=== PATIENT | male | born 1945 | race Caucasian/White ===

== ENCOUNTER → 2016-06-23 | Outpatient (CLI) | payer OTHER, MEDICARE | END | disposition home or self-care (01) | LOC: NUC 09:48 | DX: T84.498A Other mechanical complication of other internal orthopedic devices, implants and grafts, initial encounter (principal) | CPT/HCPCS: 78315; A9503 ==

== ENCOUNTER 2017-01-13 16:10 | Emergency (ER) | payer OTHER, MEDICARE ==
[~2017-01-13] VITALS: Ht 167.6 cm; Wt 92.0 kg
[2017-01-13 17:58] VITALS: BP 163/81
== END 2017-01-13 17:58 | disposition home or self-care (01) ==
LOC: EME 16:10
DX: S13.9XXA Sprain of joints and ligaments of unspecified parts of neck, initial encounter (principal); V49.40XA Driver injured in collision with unspecified motor vehicles in traffic accident, initial encounter; Y92.488 Other paved roadways as the place of occurrence of the external cause; G89.29 Other chronic pain; Z96.651 Presence of right artificial knee joint
CPT/HCPCS: 99281; 99284